=== PATIENT | male | born 1960 | race Caucasian/White ===

== ENCOUNTER 2021-02-07 17:30 | Outpatient (CLI) | payer OTHER | END 2021-02-07 17:31 | disposition home or self-care (01) | LOC: SLEEPLAB 17:30 | PROVIDERS: ATTEND Family Medicine | DX: G47.33 Obstructive sleep apnea (adult) (pediatric) (principal); R53.83 Other fatigue; R06.83 Snoring; I10 Essential (primary) hypertension; I25.10 Atherosclerotic heart disease of native coronary artery without angina pectoris; E11.9 Type 2 diabetes mellitus without complications | CPT/HCPCS: 95806 ==

== ENCOUNTER 2023-06-26 12:12 | Outpatient (CLI) | payer MEDICARE, OTHER | END 2023-06-26 12:13 | disposition home or self-care (01) | LOC: BICMRI 12:12 | PROVIDERS: ATTEND Orthopaedic Surgery | DX: S46.011A Strain of muscle(s) and tendon(s) of the rotator cuff of right shoulder, initial encounter (principal); M75.111 Incomplete rotator cuff tear or rupture of right shoulder, not specified as traumatic; M19.011 Primary osteoarthritis, right shoulder; R60.0 Localized edema ==